=== PATIENT | female | born 1955 | race Native Hawaiian/Other Pacific Islander ===

== ENCOUNTER 2018-08-07 12:55 | Outpatient (CLI) | payer OTHER | END 2018-08-07 20:31 | disposition home or self-care (01) | LOC: MAMMO 12:55 | DX: Z12.31 Encounter for screening mammogram for malignant neoplasm of breast (principal) ==

== ENCOUNTER 2019-03-24 18:17 | Emergency (ER) | payer OTHER ==
[~2019-03-24] VITALS: Ht 157.5 cm; Wt 87.1 kg
[~2019-03-24 18:17] MED LIST: GLIP10TA55 PO; XULTOPHY 100/3.1 INJ SC
[2019-03-24 19:08] LABS: PLATELET COUNT 135 K/uL (152-353)
[2019-03-24 19:32] LABS: POTASSIUM 3.4 mmol/L (3.6-5.2); SODIUM 139 mmol/L (136-145)
[2019-03-24 20:24] LABS: PARTIAL THROMBOPLASTIN TIME 25.2 SECONDS (24.5-33.6)
[2019-03-24 21:05] VITALS: BP 158/74; TEMP 98.1
== END 2019-03-24 21:05 | disposition home or self-care (01) ==
LOC: ED 18:17
PROVIDERS: Hospitalist
DX: R10.84 Generalized abdominal pain (principal); K64.4 Residual hemorrhoidal skin tags; D64.89 Other specified anemias
CPT/HCPCS: 36415; 80053; 81000; 82272; 82550; 83880; 84484; 85027; 85610; 85730; 93005; 96360; 96374; 96375; 99284; J2405; J3490

== ENCOUNTER 2019-03-27 12:21 | Outpatient (CLI) | payer OTHER | END 2019-03-27 20:32 | disposition home or self-care (01) | LOC: US 12:21 | DX: E04.1 Nontoxic single thyroid nodule (principal) | CPT/HCPCS: 60100 ==

== ENCOUNTER 2020-01-21 07:36 | Outpatient (CLI) | payer OTHER ==
[~2020-01-21] VITALS: Ht 157.5 cm; Wt 77.1 kg
[2020-01-21 08:41] VITALS: BP 125/64; TEMP 98.3
== END 2020-01-21 08:55 | disposition home or self-care (01) ==
LOC: INF 07:36
DX: D50.9 Iron deficiency anemia, unspecified (principal)
CPT/HCPCS: 96365; J1439